=== PATIENT | male | born 1975 | race Caucasian/White ===

== ENCOUNTER 2024-06-22 10:16 | Day surgery (SDC) | payer OTHER ==
[2024-06-21 12:58] VITALS: BMI 25.7
[2024-06-22 10:39] VITALS: RESP 16
[2024-06-22 12:16] VITALS: TEMP 97.3
[2024-06-22 12:25] VITALS: BP 130/75; PULSE 64
== END 2024-06-22 12:10 | disposition home or self-care (01) ==
LOC: FASU-ENDO 10:16
PROVIDERS: ATTEND Internal Medicine Gastroenterology
PROC: 0DJD8ZZ Inspection of Lower Intestinal Tract, Via Natural or Artificial Opening Endoscopic (ICD-10-PCS; principal; 2024-06-22 10:58)
DX: Z12.11 Encounter for screening for malignant neoplasm of colon (principal); K64.1 Second degree hemorrhoids; K64.8 Other hemorrhoids